=== PATIENT | male | born 2000 | race Caucasian/White ===

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

== ENCOUNTER 2019-06-15 09:51 | Emergency (ER) | payer BC ==
[2019-06-15 10:02] VITALS: BP 117/70; PULSE 87
--- NOTE | 2019-06-15 10:42 | EDM.PDOC ---
Scribed by Essie Ashley 06/15/19 1008 for Selwyn Miranda MD ED HPI GENERAL MEDICAL PROBLEM - General Chief Complaint: ENT Problem Stated Complaint: SORE THROAT Time Seen by Provider: 06/15/19 10:04 Source of Information: Reports: Patient, RN, RN Notes Reviewed History Limitations: Reports: No Limitations - History of Present Illness INITIAL COMMENTS - FREE TEXT/NARRATIVE: Patient presents to ER by POV with sore throat. States difficulty swallowing. Pain 7/10. Denies cough, fever, chills, or rash. Onset: Gradual Duration: Getting Worse Location: Reports: Other (throat) Quality: Reports: Ache Severity: Mild Improves with: Reports: None Worsens with: Reports: None Associated Symptoms: Reports: No Other Symptoms Throat Pain Score (Numeric/FACES): 7 - Related Data Allergies Allergy/AdvReac Type Severity Reaction Status Date / Time No Known Allergies Allergy Verified 06/15/19 10:03 Home Meds: Home Meds . [No Known Home Meds] 02/09/16 [History] Past Medical History - Past Health History Medical/Surgical History: Denies Medical/Surgical History HEENT History: Reports: None Cardiovascular History: Reports: None Respiratory History: Reports: None Gastrointestinal History: Reports: None Genitourinary History: Reports: None Musculoskeletal History: Reports: None Neurological History: Reports: None Psychiatric History: Reports: None Endocrine/Metabolic History: Reports: None Hematologic History: Reports: None Immunologic History: Reports: None Oncologic (Cancer) History: Reports: None Dermatologic History: Reports: None - Past Surgical History Head Surgeries/Procedures: Reports: None HEENT Surgical History: Reports: None, Other (See Below) Other HEENT Surgeries/Procedures: top left wisdom tooth removed Cardiovascular Surgical History: Reports: None Respiratory Surgical History: Reports: None GI Surgical History: Reports: None Male Surgical History: Reports: None Neurological Surgical History: Reports: None Musculoskeletal Surgical History: Reports: None Oncologic Surgical History: Reports: None Social & Family History - Family History Family Medical History: Noncontributory - Caffeine Use Caffeine Use: Reports: Soda ED ROS ENT - Review of Systems Review Of Systems: Comprehensive ROS is negative, except as noted in HPI. ED EXAM, ENT - Physical Exam Exam: See Below Exam Limited By: No Limitations General Appearance: Alert, WD/WN, No Apparent Distress Eye Exam: Bilateral Eye: Normal Inspection Ears: Normal External Exam, Normal Canal, Hearing Grossly Normal, Normal TMs Nose: Normal Inspection, Normal Mucousa, No Blood Mouth/Throat: Normal Gums, Normal Lips, Normal Teeth, Pharyngeal Erythema, Throat Pain, Tonsillar Erythema, Tonsillar Exudates, Tonsillar Swelling. No: Tongue Swelling, Uvular Deviation, Uvular Edema Head: Atraumatic, Normocephalic Neck: Non-Tender, Full Range of Motion, Lymphadenopathy (L), Lymphadenopathy (R) Respiratory/Chest: No Respiratory Distress, Lungs Clear, Normal Breath Sounds, No Accessory Muscle Use, Chest Non-Tender Cardiovascular: Regular Rate, Rhythm GI/Abdominal: Normal Bowel Sounds, Soft, Non-Tender, No Organomegaly, No Distention, No Abnormal Bruit, No Mass Neurological: Alert, Oriented Psychiatric: Normal Affect, Normal Mood Skin: Warm, Dry, Intact, Normal Color, No Rash Course - Vital Signs Last Recorded V/S: Last Vital Signs Temp 97.4 F 06/15/19 09:56 Pulse 87 06/15/19 09:56 Resp 16 06/15/19 09:56 BP 117/70 06/15/19 09:56 Pulse Ox 99 06/15/19 09:56 - Orders/Labs/Meds Orders: Active Orders 24 hr Category Date Time Status CULTURE STREP A CONFIRMATION [RM] Stat Lab 06/15/19 09:56 Results STREP SCRN A RAPID W CULT CONF [] Stat Lab 06/15/19 09:56 Results Labs: Rapid strep: Negative. Departure - Departure Time of Disposition: 10:41 Disposition: Home, Self-Care 01 Condition: Good Clinical Impression: Exudative tonsillitis - Discharge Information *PRESCRIPTION DRUG MONITORING PROGRAM REVIEWED*: No *COPY OF PRESCRIPTION DRUG MONITORING REPORT IN PATIENT LORA: No Instructions: Tonsillitis, [id number] Forms: ED Department Discharge Additional Instructions: Rx: Zithromax 250mg Frequent saltwater gargles until sore throat improves. Follow up in clinic if not improving in 3 to 4 days. - My Orders Last 24 Hours: My Active Orders 06/15/19 09:56 CULTURE STREP A CONFIRMATION [RM] Stat STREP SCRN A RAPID W CULT CONF [RM] Stat - Assessment/Plan Last 24 Hours: My Active Orders 06/15/19 09:56 CULTURE STREP A CONFIRMATION [RM] Stat STREP SCRN A RAPID W CULT CONF [RM] Stat I have read and agree with the documentation that has been completed regarding this visit. By signing this record, I attest that the documentation was completed in my physical presence and is an accurate record of the encounter.
== END 2019-06-15 10:48 | disposition home or self-care (01) ==
LOC: DL.ED 09:51
DX: J03.90 Acute tonsillitis, unspecified (principal)
CPT/HCPCS: 87081; 87430; 99284

== ENCOUNTER 2020-12-12 04:02 | Emergency (ER) | payer BC, OTHER ==
[2020-12-12] MEDS: Famotidine 20 MG/2 ML SDV IVPUSH ONE (04:18)
[2020-12-12] MEDS: diphenhydrAMINE 50 MG/ML SDV IVPUSH ONE ×2 (04:18→05:41)
[2020-12-12] MEDS: methylPREDNISolone Sodium Succinate 125 MG/2 ML SDV IVPUSH ONE (04:18)
--- NOTE | 2020-12-12 04:22 | EDM.PDOC ---
ED HPI GENERAL MEDICAL PROBLEM - General Stated Complaint: ALERGIC ALL OVER THE BODY Time Seen by Provider: 12/12/20 04:16 Source of Information: Reports: Patient, RN, RN Notes Reviewed History Limitations: Reports: No Limitations - History of Present Illness INITIAL COMMENTS - FREE TEXT/NARRATIVE: Craig is a 20 y/o male who presents to the ED via personal vehicle with complaints of edema to his left upper lip and hives diffuse to his body. He denies changes to diet, medications, soaps, lotions, or detergents; he has no history of allergies. He denies injury from a stinging insect. He denies recen t illness, fever, shaking chills, vision changes, throat tightness, difficulty swallowing, chest pain, palpitations, nausea, or vomiting. He feels as though his voice sounds as it normally does. He has not taken any medications for these symptoms. - Related Data Allergies Allergy/AdvReac Type Severity Reaction Status Date / Time No Known Allergies Allergy Verified 12/12/20 04:31 Home Meds: Home Meds . [No Known Home Meds] 02/09/16 [History] Past Medical History - Past Health History Medical/Surgical History: Denies Medical/Surgical History HEENT History: Reports: None Cardiovascular History: Reports: None Respiratory History: Reports: None Gastrointestinal History: Reports: None Genitourinary History: Reports: None Musculoskeletal History: Reports: None Neurological History: Reports: None Psychiatric History: Reports: None Endocrine/Metabolic History: Reports: None Hematologic History: Reports: None Immunologic History: Reports: None Oncologic (Cancer) History: Reports: None Dermatologic History: Reports: None - Infectious Disease History Infectious Disease History: Reports: None - Past Surgical History Head Surgeries/Procedures: Reports: None HEENT Surgical History: Reports: None, Other (See Below) Other HEENT Surgeries/Procedures: top left wisdom tooth removed Cardiovascular Surgical History: Reports: None Respiratory Surgical History: Reports: None GI Surgical History: Reports: None Male Surgical History: Reports: None Neurological Surgical History: Reports: None Musculoskeletal Surgical History: Reports: None Oncologic Surgical History: Reports: None Social & Family History - Family History Family Medical History: No Pertinent Family History - Caffeine Use Caffeine Use: Reports: Soda ED ROS ALLERGIC REACTION - Review of Systems Review Of Systems: Comprehensive ROS is negative, except as noted in HPI. ED EXAM GENERAL NO PERIP PULSE - Physical Exam Exam: See Below Exam Limited By: No Limitations General Appearance: Alert, No Apparent Distress Eye Exam: Bilateral Eye: EOMI, Normal Inspection, PERRL Ears: Normal External Exam, Normal Canal, Hearing Grossly Normal, Normal TMs Nose: Normal Inspection, Normal Mucosa, No Blood Throat/Mouth: Normal Teeth, Normal Gums, Normal Oropharynx, Normal Voice, No Airway Compromise, Inflammation (To left lip). No: Normal Lips (+3 edema to left upper lip) Head: Normocephalic Neck: Normal Inspection, Supple, Non-Tender, Full Range of Motion. No: Lymphadenopathy (L), Lymphadenopathy (R) Respiratory/Chest: No Respiratory Distress, Lungs Clear, Normal Breath Sounds, No Accessory Muscle Use, Chest Non-Tender. No: Crackles, Rales, Rhonchi, Wheezing, Stridor, Pleural Rub, Retractions, Splinting Cardiovascular: Normal Peripheral Pulses, Regular Rate, Rhythm, No Edema, No Gallop, No JVD, No Murmur, No Rub GI/Abdominal: Normal Bowel Sounds, Soft, Non-Tender, No Distention, No Abnormal Bruit, No Mass, Pelvis Stable (Male) Exam: Deferred Rectal (Males) Exam: Deferred Back Exam: Normal Inspection, Full Range of Motion Extremities: Normal Inspection, Normal Range of Motion, Non-Tender, Normal Capillary Refill, No Pedal Edema Neurological: Alert, Oriented, CN II-XII Intact, Normal Cognition, Normal Gait, No Motor/Sensory Deficits Psychiatric: Normal Affect, Normal Mood Skin Exam: Warm, Dry, Intact, Rash (Urticaria diffuse to trunk and extremities), Other (Wheals of various sizes scattered to trunk and bilateral extremities) Lymphatic: No Adenopathy Course - Vital Signs Last Recorded V/S: Last Vital Signs Temp 97.6 F 12/12/20 04:29 Pulse 80 12/12/20 04:29 Resp 16 12/12/20 04:29 BP 123/89 12/12/20 04:29 Pulse Ox 100 12/12/20 04:29 - Orders/Labs/Meds Meds: Medications Discontinued Medications Generic Name Dose Route Start Last Admin Trade Name Freq PRN Reason Stop Dose Admin Diphenhydramine HCl 50 mg 12/12/20 04:11 12/12/20 04:18 Diphenhydramine 50 Mg/Ml Sdv IVPUSH 12/12/20 04:12 50 mg ONETIME ONE Administration Diphenhydramine HCl 50 mg 12/12/20 05:34 12/12/20 05:41 Diphenhydramine 50 Mg/Ml Sdv IVPUSH 12/12/20 05:35 50 mg ONETIME ONE Administration Famotidine 20 mg 12/12/20 04:11 12/12/20 04:18 Famotidine 20 Mg/2 Ml Sdv IVPUSH 12/12/20 04:12 20 mg ONETIME ONE Administration Sodium Chloride 1,000 mls @ 999 mls/hr 12/12/20 04:23 12/12/20 04:27 Normal Saline IV 12/12/20 05:23 999 mls/hr .BOLUS ONE Administration Sodium Chloride 1,000 mls @ 999 mls/hr 12/12/20 05:34 12/12/20 05:42 Normal Saline IV 12/12/20 06:34 999 mls/hr .BOLUS ONE Administration Methylprednisolone Sodium Succinate 125 mg 12/12/20 04:10 12/12/20 04:18 Methylprednisolone Sodium Succinate 125 Mg/2 Ml Sdv IVPUSH 12/12/20 04:11 125 mg ONETIME ONE Administration - Re-Assessments/Exams Free Text/Narrative Re-Assessment/Exam: 12/12/20 NS 1L bolus, Benadryl 50mg IV, Pepcid 20mg IV, Solu-Medrol 125mg IV administered. Angioedema spread across upper and lower lips; breathing remains regular even and easy. No stridor, oral edema, or oral erythema. Benadryl 50mg IV and additional NS 1L bolus administered. Findings of examination reviewed with patient and father. Will treat with prednisone. Discussed supportive cares for with patient as well as red flag signs and symptoms which would warrant immediate reevaluation. Patient instructed to follow up with primary care provider regarding today's visit. Patient and father verbalized understanding and agreement with the plan of care. Departure - Departure Time of Disposition: 06:42 Disposition: Home, Self-Care 01 Condition: Good Clinical Impression: Urticaria Allergic angioedema Qualifiers: Encounter type: initial encounter Qualified Code(s): T78.3XXA - Angioneurotic edema, initial encounter Allergic reaction Qualifiers: Encounter type: initial encounter Qualified Code(s): T78.40XA - Allergy, unspecified, initial encounter - Discharge Information *PRESCRIPTION DRUG MONITORING PROGRAM REVIEWED*: Not Applicable *COPY OF PRESCRIPTION DRUG MONITORING REPORT IN PATIENT LORA: Not Applicable Instructions: Angioedema, [id number] Referrals: PCP,None [Primary Care Provider] - Forms: ED Department Discharge Additional Instructions: Rx: prednisone 1.) You may continue to take Benadryl twice a day, as symptoms persists. 2.) You may take Pepcid once a day, as symptoms persist. 3.) You may take ibuprofen (Advil/Motrin) 400mg every six hours, for headache or pain. You may also take acetaminophen (Tylenol) 650mg every six hours, for headache or pain. You may stagger these medications so you are receiving a dose every three hours. 4.) Return to the emergency room immediately with any progressive swelling into the oral cavity, change in voice, sensation of throat tightness, difficulty breathing, fast heart rate, or difficulty swallowing.
[2020-12-12] MEDS: Sodium Chloride 0.9% 1,000 ML IV ONE ×2 (04:27→05:42)
[2020-12-12 04:31] VITALS: BP 123/89; PULSE 80
== END 2020-12-12 06:49 | disposition home or self-care (01) ==
LOC: DL.ED 04:02
DX: T78.3XXA Angioneurotic edema, initial encounter (principal); T78.40XA Allergy, unspecified, initial encounter
CPT/HCPCS: 96374; 96375; 96376; 99283; J1200; J2930; J3490; J7030